=== PATIENT | female | born 1990 | race Two or more races ===

== ENCOUNTER 2021-09-10 08:08 | Emergency (ER) | payer OTHER ==
[2021-09-10] MEDS ORDERED: Sodium Chloride 0.9% 2.5 ML Syringe FLUSH PRN (08:16)
[2021-09-10] MEDS ORDERED: Sodium Chloride 0.9% 10 ML Syringe FLUSH PRN (08:16)
[2021-09-10] MEDS ORDERED: Sodium Chloride 0.9% 1,000 ML IV ONE ×2 (08:16→09:07)
[2021-09-10] MEDS ORDERED: Ondansetron 4 MG/2 ML SDV IVPUSH ONE (08:16)
[2021-09-10] MEDS ORDERED: Ketorolac 30 MG/ML SDV IVPUSH ONE (09:04)
[2021-09-10 09:14] LABS: BLOOD UREA NITROGEN,BUN 11 mg/dL (7.0-18.0); CARBON DIOXIDE,CO2 22.2 mmol/L (21.0-32.0); CHLORIDE,CL 104 mmol/L (98-107); GLUCOSE RANDOM 106 mg/dL (74-106); LIPASE 40 U/L (73-393); POTASSIUM,K 3.5 mmol/L (3.5-5.1); SODIUM,NA 139 mmol/L (136-145)
[2021-09-10] MEDS ORDERED: Iopamidol 755 MG/ML 500 ML Multipack Bottle IVPUSH STA (10:13)
[2021-09-10 11:08] VITALS: BP 125/80; PULSE 92
== END 2021-09-10 11:10 | disposition home or self-care (01) ==
LOC: MW.ED 08:08
DX: K52.9 Noninfective gastroenteritis and colitis, unspecified (principal); I10 Essential (primary) hypertension; E11.9 Type 2 diabetes mellitus without complications
CPT/HCPCS: 36415; 74177; 80053; 81001; 83690; 84703; 85025; 96374; 96375; 99284; J1885; J2405; J3490; J7030; Q9967